=== PATIENT | male | born 1975 | race African-American/Black ===

== ENCOUNTER 2020-07-16 11:45 | Emergency (ER) | payer OTHER ==
--- NOTE | 2020-07-16 17:31 | RAD ---
LEFT KNEE FOUR VIEWS: 07/16/20 A joint effusion is present, but no fracture was seen. The joint surfaces appear normal and the joint space is normal in width. IMPRESSION: Medium sized joint effusion. The possibility of an internal derangement is not excluded. POS: HOME
== END 2020-07-16 12:36 | disposition home or self-care (01) ==
LOC: BURERS 11:45
DX: S76.112A Strain of left quadriceps muscle, fascia and tendon, initial encounter (principal); Z87.891 Personal history of nicotine dependence; W00.0XXA Fall on same level due to ice and snow, initial encounter